=== PATIENT | female | born 1935 | race Caucasian/White ===

== ENCOUNTER 2017-08-02 10:37 | Emergency (ER) | payer MEDICARE, SELFPAY ==
[2017-08-02 10:48] VITALS: BP 161/96; PULSE 90; RESP 22; TEMP 36.8; O2SAT 96; BMI 17.7
--- NOTE | 2017-08-02 10:57 | DI.RAD.S_ITS ---
PROCEDURE: XR CHEST 2V INDICATIONS: 81 year-old female with shortness of breath. TECHNIQUE: 2 views of the chest were acquired. COMPARISON: [facility], , ABDOMEN ACUTE SERIES, 02/23/2015, 17:59. [facility], , CHEST 2 VIEW, 12/05/2014, 11:14. [facility], , CHEST 2 VIEW, 01/15/2013, 9:41. FINDINGS: Surgical changes and devices: None. Lungs and pleura: No pleural effusions or pneumothorax. Lungs are clear. Lung volumes are prominent. Mediastinum: Mediastinal contours are normal. Heart size is normal. There is aortic atherosclerosis. Bones and chest wall: No suspicious bony abnormalities. There is lumbar spine scoliosis. Soft tissues appear unremarkable. IMPRESSION: No acute cardiopulmonary disease. Prominent lung volumes raise the question of chronic obstructive pulmonary disease. Dictated by: Mychal Marie M.D. on 08/02/2017 at 12:03 Approved by: Mychal Marie M.D. on 08/02/2017 at 12:03
--- NOTE | 2017-08-02 11:06 | DI.US.S_ITS ---
PROCEDURE: US PERIPH VENOUS LOW EXTREM LT INDICATIONS: 81 year-old female with left leg edema and shortness of breath. TECHNIQUE: Real-time imaging, as well as color and pulse Doppler interrogation, were performed of the lower extremity deep veins from the inguinal ligament to the popliteal fossa. COMPARISON: None. FINDINGS: The deep veins are normally compressible, and free of intraluminal thrombus. Color and pulse Doppler demonstrate normal phasic intraluminal flow. There is normal augmentation response to distal compression maneuver. 1.8 x 1.4 x 0.6 cm Bourgeois cyst is noted within the popliteal fossa. IMPRESSION: No sonographic evidence for left lower extremity deep venous thrombosis. Small Bourgeois's cyst. Dictated by: Mychal Marie M.D. on 08/02/2017 at 13:01 Approved by: Mychal Marie M.D. on 08/02/2017 at 13:02
[2017-08-02] MEDS: ALBUTEROL/IPRATROPIUM 3 ML AMPUL INH (11:10)
--- NOTE | 2017-08-02 11:14 | ED_ITS ---
HPI - SOB/Dyspnea General Chief Complaint: Shortness of Breath/Dyspnea Stated Complaint: SOB, hx of COPD, bilateral swelling in feet Time Seen by Provider: 08/02/17 10:43 Source: patient Mode of arrival: ambulatory Limitations: no limitations History of Present Illness 81-year-old female with history of COPD on home oxygen at night presents to the emergency department with increasing shortness of breath over the past few days. She denies any fever chills nor chest pain. She did suffer an injury to her left foot a few weeks ago and now it is swollen today. Complaint: shortness of breath Onset (ago): day(s) Severity: moderate Consistency/Duration: constant Relieving factors: nothing Exacerbating factors: nothing Known history of: COPD Associated symptoms: cough and wheezing Related Data Home Medications Medication Instructions Recorded Confirmed aspirin 81 mg PO QDAY #0 06/05/12 losartan 50 #0 06/05/12 metoprolol tartrate 25 #0 06/05/12 Previous Rx's Medication Instructions Recorded prednisone See Label Instructions .ROUTE 08/02/17 .COMPLEX #30 tab Allergies Allergy/AdvReac Type Severity Reaction Status Date / Time No Known Drug Allergies Allergy Verified 08/02/17 10:56 Review of Systems Review of Systems All systems reviewed & are unremarkable except as noted in HPI and below Constitutional Denies chills, Denies fever(s), Denies lethargy and Denies weakness Eyes Denies change in vision, Denies eye discharge, Denies irritation and Denies loss of vision ENT Ears, Nose, Mouth, and Throat: Denies change in voice, Denies neck pain and Denies sore throat Cardiovascular Denies chest pain, Denies irregular heart rhythm, Denies lightheadedness, Denies palpitations, Reports dyspnea, Denies dyspnea on exertion and Denies orthopnea Respiratory Denies cough, Reports dyspnea, Denies dyspnea on exertion and Reports wheezing Gastrointestinal Gastrointestinal: Denies abdominal pain, Denies change in bowel habits, Denies diarrhea, Denies nausea and Denies vomiting Genitourinary Denies hematuria, Denies flank pain, Denies urinary incontinence and Denies urinary urgency Musculoskeletal Reports joint swelling and Denies neck pain Integumentary/Breasts Denies pruritus, Denies erythema, Denies rash and Denies wounds Neurologic Denies confusion, Denies loss of vision and Denies weakness Psychiatric Denies anxiety, Denies confusion, Denies depression, Denies homicidal ideation and Denies suicidal ideation Endocrine Denies palpitations Hematologic/Lymphatic Denies easy bruising Allergic/Immunologic Reports wheezing PFSH Social History Smoking Status: Former smoker Exam Narrative Exam Narrative: Chronically ill 81-year-old female in mild distress Initial Vital Signs Initial Vital Signs: Vital Signs Temperature 98.2 F 08/02/17 10:48 Pulse Rate 90 08/02/17 10:48 Respiratory Rate 22 08/02/17 10:48 Blood Pressure 161/96 H 08/02/17 10:48 Pulse Oximetry 96 08/02/17 10:48 Const General: cooperative and well developed Nutritional Appearance: well nourished Orientation: alert, awake, oriented x3 and not confused HENMT Head: normocephalic and atraumatic Ears: external ears normal and TM's normal bilaterally Nose: external nose normal and No nasal discharge Face and sinus: sinuses nontender, face symmetric, no sinus tenderness and No dry mucous membranes Mouth: oral mucosae normal and moist mucous membranes Teeth and gingiva: dentition normal Throat: tonsils normal and uvula midline Eyes General: appearance normal, both eyes and all related structures Eyelids: eyelids normal Conjunctivae: conjunctivae normal Sclera: sclerae normal Pupils: PERRL EOM: EOM intact bilaterally Neck Neck: normal visual inspection, trachea midline, No lymphadenopathy, No midline deformity and No JVD Lymphatic: No lymphedema Resp Effort & Inspection: normal respiratory effort, able to speak in complete sentences, no respiratory distress and no use of accessory muscles Auscultation: diminished lung sounds, no rales, no rhonchi and wheezes Course Orders Ordered: ED Orders 08/02/17 10:57 Consult to Respiratory Therapy Evaluate & Treat XR chest 2V Stat EKG-12 Lead Stat 08/02/17 11:06 periph venous low extrem lt Stat 08/02/17 11:15 B Type Natriuretic Peptide Stat Complete Blood Count AUTO DIFF Stat Comprehensive Metabolic Panel Stat 08/02/17 11:30 Lactate (Lactic Acid) Stat 08/02/17 11:50 Arterial Blood Gas Stat Discontinued Medications Albuterol/Ipratropium (Duoneb) 3 ml INH NOW ONE Stop: 08/02/17 11:10 Last Admin: 08/02/17 11:10 Dose: 3 ml Methylprednisolone (Solu-Medrol 125 Mg Vial) 125 mg IV NOW ONE Stop: 08/02/17 11:48 Last Admin: 08/02/17 11:54 Dose: 125 mg Vital Signs - 8 hr 08/02/17 10:48 08/02/17 11:15 08/02/17 11:44 Temperature 98.2 F Pulse Rate 90 90 85 Respiratory Rate 22 28 H 16 Blood Pressure 161/96 H Blood Pressure [Left Arm] 153/73 H Pulse Oximetry 96 96 97 08/02/17 12:27 08/02/17 13:00 Temperature Pulse Rate 82 88 Respiratory Rate 26 H Blood Pressure Blood Pressure [Left Arm] 150/73 H 150/81 H Pulse Oximetry 97 93 MDM - SOB/Dyspnea Differential Diagnosis Likely acute exacerbation of chronic obstructive airways disease, congestive heart failure, community acquired pneumonia, asthma with exacerbation and pulmonary embolism Medical Records Attestation: I reviewed the patient's medical records. Lab Data Attestation: I reviewed the patient's lab results. Result diagrams: 08/02/17 11:15 08/02/17 11:15 Lab Results 08/02/17 08/02/17 08/02/17 Range/Units 11:15 11:15 11:15 WBC 6.0 (4.5-11.0) X10^3/uL RBC 5.37 H (4.0-5.2) X10^6/uL Hgb 15.8 (12.0-16.0) g/dL Hct 47.1 H (36-46) % MCV 87.6 (80-100) fL MCH 29.4 (26-34) PG MCHC 33.6 (30-36) % RDW 14.2 (11.6-14.8) % Plt Count 157 (150-400) X10^3/uL Neut % (Auto) 75.4 H (50-75) % Lymph % (Auto) 14.2 L (25-40) % [place] % (Auto) 8.5 (3-14) % Eos % (Auto) 0.8 L (2-4) % Baso % (Auto) 1.1 (0-2) % Neut # (Auto) 4500 (7497-2750) /uL ABG pH (7.35-7.45) ABG pCO2 (35-45) mmHg ABG pO2 (80-105) mmHg ABG HCO3 (23-27) mmol/L ABG Total CO2 (23-27) mmol/L ABG O2 Saturation (95-100) % ABG Base Excess (-2-3) mmol/L FiO2 Sodium 142 (137-145) mmol/L Potassium 4.0 (3.4-5.1) mmol/L Chloride 100 (98-107) mmol/L Carbon Dioxide 26 (22-32) mmol/L BUN 21 H (7-17) mg/dL Creatinine 0.60 (0.52-1.04) mg/dL Estimated GFR > 60.0 (>60) mL/min BUN/Creatinine Ratio 35.0 H (6-22) Glucose 113 H (80-110) mg/dL Lactate (0.7-2.1) mmol/L Calcium 9.5 (8.4-10.2) mg/dL Total Bilirubin 1.1 (0.2-1.3) mg/dL AST 28 (14-36) IU/L ALT 30 (9-52) IU/L Alkaline Phosphatase 94 (38-126) U/L B-Natriuretic Peptide (<100) Total Protein 7.4 (6.3-8.2) g/dL Albumin 4.4 (3.5-5.0) g/dL Globulin 3.0 (1.7-4.1) g/dL Albumin/Globulin Ratio 1.5 (1.0-2.8) 18 08/02/17 Range/Units 11:30 11:50 WBC (4.5-11.0) X10^3/uL RBC (4.0-5.2) X10^6/uL Hgb (12.0-16.0) g/dL Hct (36-46) % MCV (80-100) fL MCH (26-34) PG MCHC (30-36) % RDW (11.6-14.8) % Plt Count (150-400) X10^3/uL Neut % (Auto) (50-75) % Lymph % (Auto) (25-40) % [place] % (Auto) (3-14) % Eos % (Auto) (2-4) % Baso % (Auto) (0-2) % Neut # (Auto) (1091-6025) /uL ABG pH 7.38 (7.35-7.45) ABG pCO2 44.0 (35-45) mmHg ABG pO2 65 L (80-105) mmHg ABG HCO3 26 (23-27) mmol/L ABG Total CO2 27 (23-27) mmol/L ABG O2 Saturation 92 L (95-100) % ABG Base Excess 1.0 (-2-3) mmol/L FiO2 0.21 Sodium (137-145) mmol/L Potassium (3.4-5.1) mmol/L Chloride (98-107) mmol/L Carbon Dioxide (22-32) mmol/L BUN (7-17) mg/dL Creatinine (0.52-1.04) mg/dL Estimated GFR (>60) mL/min BUN/Creatinine Ratio (6-22) Glucose (80-110) mg/dL Lactate 1.0 (0.7-2.1) mmol/L Calcium (8.4-10.2) mg/dL Total Bilirubin (0.2-1.3) mg/dL AST (14-36) IU/L ALT (9-52) IU/L Alkaline Phosphatase (38-126) U/L B-Natriuretic Peptide (<100) Total Protein (6.3-8.2) g/dL Albumin (3.5-5.0) g/dL Globulin (1.7-4.1) g/dL Albumin/Globulin Ratio (1.0-2.8) Imaging Data Chest x-ray: Radiologist's impression: PROCEDURE: XR CHEST 2V INDICATIONS: 81 year-old female with shortness of breath. TECHNIQUE: 2 views of the chest were acquired. COMPARISON: [facility], ABDOMEN ACUTE SERIES, 02/23/2015, 17:59. [facility], CHEST 2 VIEW, 12/05/2014, 11:14. [facility], CHEST 2 VIEW, 01/15/2013, 9:41. FINDINGS: Surgical changes and devices: None. Lungs and pleura: No pleural effusions or pneumothorax. Lungs are clear. Lung volumes are prominent. Mediastinum: Mediastinal contours are normal. Heart size is normal. There is aortic atherosclerosis. Bones and chest wall: No suspicious bony abnormalities. There is lumbar spine scoliosis. Soft tissues appear unremarkable. IMPRESSION: No acute cardiopulmonary disease. Prominent lung volumes raise the question of chronic obstructive pulmonary disease. Dictated by: Mychal Marie M.D. on 08/02/2017 at 12:03 Approved by: Mychal Marie M.D. on 08/02/2017 at 12:03 Discharge Plan Departure Patient Disposition: Home, Self-Care Clinical Impression: Acute exacerbation of chronic obstructive airways disease Discharge Date/Time: 08/02/17 13:59 Interventions: ED Discharge Assessment Last Done: 08/02/17 13:54 Instructions: DI for Chronic Obstructive Pulmonary Disease Activity Restrictions/Additional Instructions: *You have been diagnosed with [ exacerbation of COPD ] *What to do: *Take medications as directed, your prescription has been electronically transmitted to the [facility] in [place] is at your request *Follow up with your primary care provider in 2-3 days, call Friday for an appointment *Return to ER if you should have any new, worsening or concerning symptoms Prescriptions: New prednisone 10 mg tablet See Label Instructions .ROUTE .COMPLEX Qty: 30 RF: 0 No Action metoprolol tartrate 25 MG tablet 25 Qty: 0 RF: 0 losartan 50 MG tablet 50 Qty: 0 RF: 0 aspirin 81 MG tablet,chewable 81 mg PO QDAY Qty: 0 RF: 0
[2017-08-02 11:15] VITALS: PULSE 90; RESP 28; O2SAT 96
[2017-08-02 11:33] LABS: Alanine Aminotransferase 30 IU/L (9-52); Albumin 4.4 g/dL (3.5-5.0); Albumin Globulin Ratio 1.5 (1.0-2.8); Alkaline Phosphatase 94 U/L (38-126); Aspartate Aminotransferase 28 IU/L (14-36); Bilirubin Total 1.1 mg/dL (0.2-1.3); Blood Urea Nitrogen 21 mg/dL (7-17); Calcium 9.5 mg/dL (8.4-10.2); Carbon Dioxide 26 mmol/L (22-32); Chloride 100 mmol/L (98-107); Estimated Glomerular Filt Rate > 60.0 mL/min (>60); Glucose 113 mg/dL (80-110); HEMOLYSIS 19 (0-50); Sodium 142 mmol/L (137-145); Total Protein 7.4 g/dL (6.3-8.2)
[2017-08-02 11:35] LABS: Add Manual Diff / Slide Review NO; Basophils Percent Auto 1.1 % (0-2); Eosinophils Percent Auto 0.8 % (2-4); Hematocrit 47.1 % (36-46); Hemoglobin 15.8 g/dL (12.0-16.0); Lymphocytes Percent Auto 14.2 % (25-40); Mean Corpuscular HGB Conc 33.6 % (30-36); Mean Corpuscular Hemoglobin 29.4 PG (26-34); Mean Corpuscular Volume 87.6 fL (80-100); Monocytes Percent Auto 8.5 % (3-14); Neutrophils Absolute Auto 4500 /uL (3000-5900); Neutrophils Percent Auto 75.4 % (50-75); Platelet Count 157 X10^3/uL (150-400); Red Blood Cell Count 5.37 X10^6/uL (4.0-5.2); Red Cell Distribution Width 14.2 % (11.6-14.8)
[2017-08-02 11:44] VITALS: BP 153/73; PULSE 85; RESP 16; O2SAT 97
[2017-08-02] MEDS: methylPREDNISolone 125 MG/2 ML VIAL IV (11:54)
[2017-08-02 12:27] VITALS: BP 150/73; PULSE 82; O2SAT 97
[2017-08-02 12:37] LABS: pH ABG 7.38 (7.35-7.45)
[2017-08-02 12:38] LABS: Fractionated Inspired Oxygen 0.21; HCO3 ABG 26 mmol/L (23-27); Oxygen Saturation ABG 92 % (95-100); PO2 ABG 65 mmHg (80-105); TCO2 ABG 27 mmol/L (23-27)
[2017-08-02 13:00] VITALS: BP 150/81; PULSE 88; RESP 26; O2SAT 93
== END 2017-08-02 13:59 | disposition home or self-care (01) ==
PROVIDERS: Emergency Provider Emergency Medicine; Family Provider Internal Medicine; PCP Internal Medicine
DX: J44.1 Chronic obstructive pulmonary disease with (acute) exacerbation (principal)
CPT/HCPCS: 36591; 36600; 71046; 80053; 82805; 83605; 83880; 85025; 93005; 93041; 93971; 94640; 96374; 99283; 99285; J2930

== ENCOUNTER 2017-09-18 13:24 | Emergency (ER) | payer MEDICARE, SELFPAY ==
[2017-09-18 13:27] VITALS: BMI 20.2
[2017-09-18 13:28] VITALS: BP 147/102; PULSE 93; RESP 21; TEMP 36.5; O2SAT 94
--- NOTE | 2017-09-18 13:38 | ED_ITS ---
HPI - Fall General Chief Complaint: Fall Stated Complaint: Fall - Found on floor Time Seen by Provider: 09/18/17 13:33 Source: patient and EMS Mode of arrival: EMS History of Present Illness HPI Narrative: Patient is an 81-year-old female brought in by EMS for initial reports of being found on the floor for an unknown period of time. The patient stated that she did fall at home. She states she was not on the ground for a long period of time. She states that her daughter found her fairly quickly. She states that she tripped and that is why she fell. There were reports that the patient has the early stages of dementia. The patient denied any symptoms here in the emergency department. Denied chest pain or palpitations denied any joint pain. She states she did not hit her head. Related Data Home Medications Medication Instructions Recorded Confirmed aspirin 81 mg PO DAILY 09/18/17 09/18/17 atorvastatin 40 mg PO DAILY 09/18/17 09/18/17 losartan 50 mg PO DAILY 09/18/17 09/18/17 prednisone 10 mg PO DAILY 09/18/17 09/18/17 Previous Rx's Medication Instructions Recorded cephalexin [Keflex] 500 mg PO BID 7 Days #14 cap 09/18/17 Allergies Allergy/AdvReac Type Severity Reaction Status Date / Time No Known Drug Allergies Allergy Verified 08/02/17 10:56 Review of Systems Constitutional Denies fever(s) and Denies headache(s) ENT Ears, Nose, Mouth, and Throat: Denies vertigo, Denies dizziness and Denies headache(s) Cardiovascular Denies chest pain, Denies palpitations and Denies dyspnea Respiratory Denies cough, Denies dyspnea and Denies wheezing Gastrointestinal Gastrointestinal: Denies abdominal pain, Denies nausea and Denies vomiting Genitourinary Denies dysuria and Denies flank pain Musculoskeletal Denies back pain, Denies myalgias, Denies deformity, Denies arthralgias, Denies joint swelling and Denies limited range of motion Integumentary/Breasts Denies lesions and Denies rash Neurologic Denies behavioral changes, Denies confusion, Denies vertigo, Denies dizziness, Denies headache(s) and Denies lack of coordination Psychiatric Denies behavioral changes and Denies confusion Endocrine Denies palpitations Hematologic/Lymphatic Denies easy bleeding and Denies easy bruising Allergic/Immunologic Denies urticaria and Denies wheezing Exam Initial Vital Signs Initial Vital Signs: Vital Signs Temperature 97.7 F 09/18/17 13:28 Pulse Rate 93 H 09/18/17 13:28 Respiratory Rate 21 09/18/17 13:28 Blood Pressure 147/102 H 09/18/17 13:28 Pulse Oximetry 94 09/18/17 13:28 Const General: cooperative, healthy appearing, comfortable, well developed, well groomed and No acute distress Orientation: alert, awake, oriented to person, oriented to place and not oriented to time [facility] Head: normal to inspection, normocephalic and atraumatic Ears: hearing grossly normal bilaterally Resp Effort & Inspection: normal respiratory effort Auscultation: clear to auscultation bilaterally Cardio Rate: regular rate Pulses: radial pulses present GI Inspection: non-distended Palpation: soft, No firm and No tender Skin Lesions: no lesions Rashes: no rashes Neuro General: alert, awake and moves all extremities Speech: speech normal Motor: muscle tone normal throughout Sensory Exam: no sensory deficits noted Extrem Other: No gross deformities Moves all 4 extremities without problems Psych Appearance: grossly normal and well kempt [facility] Medical History TIA (transient ischemic attack) (Acute) Social History Smoking Status: Former smoker Comment: I reviewed the patient's past medical history past surgical history family history and social history with her. Course Orders Ordered: ED Orders 09/18/17 13:15 Basic Metabolic Panel Stat Complete Blood Count AUTO DIFF Stat Creatine Kinase Stat 09/18/17 13:20 Urine Culture Stat Urine Microscopic Stat Vital Signs - 8 hr 09/18/17 13:28 09/18/17 14:05 09/18/17 14:30 Temperature 97.7 F Pulse Rate 93 H 88 81 Respiratory Rate 21 21 18 Blood Pressure Blood Pressure [Left Arm] 147/102 H 139/76 H 134/76 H Pulse Oximetry 94 97 96 09/18/17 14:57 Temperature Pulse Rate 84 Respiratory Rate 20 Blood Pressure 134/76 H Blood Pressure [Left Arm] Pulse Oximetry 96 MDM - Fall Medical Records Attestation: I reviewed the patient's medical records. Lab Data Attestation: I reviewed the patient's lab results. Result diagrams: 09/18/17 13:15 09/18/17 13:15 Lab Results 09/18/17 09/18/17 09/18/17 Range/Units 13:15 13:15 13:20 WBC 9.7 (4.5-11.0) X10^3/uL RBC 5.46 H (4.0-5.2) X10^6/uL Hgb 15.8 (12.0-16.0) g/dL Hct 47.6 H (36-46) % MCV 87.2 (80-100) fL MCH 28.9 (26-34) PG MCHC 33.1 (30-36) % RDW 14.1 (11.6-14.8) % Plt Count 209 (150-400) X10^3/uL Neut % (Auto) 79.5 H (50-75) % Lymph % (Auto) 10.5 L (25-40) % [place] % (Auto) 8.2 (3-14) % Eos % (Auto) 1.1 L (2-4) % Baso % (Auto) 0.7 (0-2) % Neut # (Auto) 7700 H (4994-8721) /uL Sodium 145 (137-145) mmol/L Potassium 3.3 L (3.4-5.1) mmol/L Chloride 101 (98-107) mmol/L Carbon Dioxide 29 (22-32) mmol/L BUN 20 H (7-17) mg/dL Creatinine 0.60 (0.52-1.04) mg/dL Estimated GFR > 60.0 (>60) mL/min BUN/Creatinine Ratio 33.3 H (6-22) Glucose 102 (80-110) mg/dL Calcium 9.9 (8.4-10.2) mg/dL Total Creatine Kinase 436 H (30-135) U/L Urine RBC None seen (0-5/HPF) Urine WBC 5-10/hpf H (0-5/HPF) Ur Squamous Epith Cells 0-1 /hpf Amorphous Sediment 1+ Urine Bacteria Few (2-10) H (None) Urine Mucus 1+ H (Negative) Ur Culture Indicated? Specimen cultured Micro UA Comment Not Reportable ECG Data Attestation: I personally reviewed and interpreted this ECG as follows: Prior ECG tracings: not available for review Interpretation: Sinus rhythm Ventricular rate at 85 Right bundle branch block Left anterior fascicular block Left axis deviation QRS 142 milliseconds Normal QTC Nonspecific ST T wave changes MDM Narrative Medical decision making narrative: No signs of trauma found on my exam. The patient stated that she was not on the ground for an extended period of time. Will hold on radiologic workup for now. After the patient had been discharged the patient's daughter arrived in the emergency department and asked that we check a urine on her. This did come back with bacteria and white blood cells however the patient has no symptoms. We did discuss options to include waiting for the urine culture to return versus treating her with an antibiotic today. The patient opted to have an antibiotic prescribed her today. Both the patient and her daughter were given return precautions. They both expressed understanding and agreement with plan. Discharge Plan Departure Patient Disposition: Home, Self-Care Clinical Impression: Fall at home, Urinary tract infection Discharge Date/Time: 09/18/17 16:25 Interventions: ED Discharge Assessment Last Done: 09/18/17 14:57 Instructions: How to Prevent Falls Activity Restrictions/Additional Instructions: continue all of your medications as directed. Call your primary care doctor for a follow-up. Return to the emergency department for any new or worsening symptoms Prescriptions: New cephalexin [Keflex] 500 mg capsule 500 mg PO BID 7 Days Qty: 14 RF: 0 No Action losartan 50 mg Tablet 50 mg PO DAILY RF: 0 atorvastatin 40 mg Tablet 40 mg PO DAILY RF: 0 prednisone 10 mg Tablet 10 mg PO DAILY RF: 0 aspirin 81 mg Tablet,Delayed Release (Dr/Ec) 81 mg PO DAILY RF: 0
[2017-09-18 13:44] LABS: Add Manual Diff / Slide Review NO; Basophils Percent Auto 0.7 % (0-2); Eosinophils Percent Auto 1.1 % (2-4); Hematocrit 47.6 % (36-46); Hemoglobin 15.8 g/dL (12.0-16.0); Lymphocytes Percent Auto 10.5 % (25-40); Mean Corpuscular HGB Conc 33.1 % (30-36); Mean Corpuscular Hemoglobin 28.9 PG (26-34); Mean Corpuscular Volume 87.2 fL (80-100); Monocytes Percent Auto 8.2 % (3-14); Neutrophils Absolute Auto 7700 /uL (3000-5900); Neutrophils Percent Auto 79.5 % (50-75); Platelet Count 209 X10^3/uL (150-400); Red Blood Cell Count 5.46 X10^6/uL (4.0-5.2); Red Cell Distribution Width 14.1 % (11.6-14.8); White Blood Cell Count 9.7 X10^3/uL (4.5-11.0)
[2017-09-18 13:51] LABS: BUN Creatinine Ratio 33.3 (6-22); Blood Urea Nitrogen 20 mg/dL (7-17); Calcium 9.9 mg/dL (8.4-10.2); Carbon Dioxide 29 mmol/L (22-32); Chloride 101 mmol/L (98-107); Creatine Kinase 436 U/L (30-135); Estimated Glomerular Filt Rate > 60.0 mL/min (>60); Glucose 102 mg/dL (80-110); HEMOLYSIS 16 (0-50); Potassium 3.3 mmol/L (3.4-5.1); Sodium 145 mmol/L (137-145)
[2017-09-18 14:05] VITALS: BP 139/76; PULSE 88; RESP 21; O2SAT 97
[2017-09-18 14:30] VITALS: BP 134/76; PULSE 81; RESP 18; O2SAT 96
[2017-09-18 14:57] VITALS: BP 134/76; PULSE 84; RESP 20; O2SAT 96
[2017-09-18 15:42] LABS: RBC Urine None Seen (0-5/HPF)
[2017-09-18 16:08] LABS: Amorphous Sediment Urine 1+; Bacteria Urine Few (2-10); Squamous Epithelial Cell Urine 0-1 /HPF; WBC Urine 5-10/HPF (0-5/HPF)
[2017-09-18 16:09] LABS: Culture Indicated Urine Specimen Cultured; Mucus Urine 1+ (Negative)
--- NOTE | 2017-09-18 16:25 | PC.NURSE ---
Stayed after dc for ua results. sent home with prescription
== END 2017-09-18 16:25 | disposition home or self-care (01) ==
PROVIDERS: Emergency Provider Emergency Medicine; Family Provider Internal Medicine; PCP Internal Medicine
DX: N39.0 Urinary tract infection, site not specified (principal); W18.30XA Fall on same level, unspecified, initial encounter
CPT/HCPCS: 80048; 81003; 81015; 82550; 85025; 87086; 93005; 99283; 99284